=== PATIENT | male | born 1990 | race Caucasian/White ===

== ENCOUNTER 2016-08-18 20:19 | Inpatient (IN) | payer SELFPAY ==
[~2016-08-18] VITALS: Ht 182.9 cm; Wt 110.5 kg
[~2016-08-18 20:19] MED LIST: Z.0.NO CURRENT MEDS
[2016-08-18 20:20] VITALS: O2SAT 98
[2016-08-18] MEDS ORDERED: MORPHINE SULFATE 8 MG/ML INJ ONE (20:22)
[2016-08-18] MEDS ORDERED: ceFAZolin 2 GM PREMIX 50 ML IV STA (20:41)
[2016-08-18] MEDS ORDERED: DIPHTH/TETANUS/ACEL PERTUSSIS (BOOSTER) 0.5 ML VIAL/PFS IM ONE (20:41)
[2016-08-18] MEDS ORDERED: MORPHINE SULFATE 4 MG/ML INJ IV ONE (20:45)
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
[2016-08-18 20:51] LABS: I-STAT POTASSIUM 3.6 MMOL/L (3.5-4.9)
[2016-08-18 20:55] LABS: BASOPHIL % 0.4 % (0.0-2.0); EOSINOPHIL # 0.2 TH/MM3 (0-0.4); EOSINOPHIL % 2.2 % (0.0-4.0); HEMATOCRIT 49.8 % (39.0-51.0); HEMO FLAGS DIFF FINAL; LYMPH % 47.6 % (9.0-44.0); LYMPHOCYTE # 4.7 TH/MM3 (1.0-4.8); MEAN CORPUSCULAR HEMOGLOBIN 33.7 PG (27.0-34.0); MEAN CORPUSCULAR HGB CONC 35.5 % (32.0-36.0); MONO % 9.8 % (0.0-8.0); PLATELET COUNT 222 TH/MM3 (150-450); RED BLOOD COUNT 5.24 MIL/MM3 (4.50-5.90); WHITE BLOOD COUNT 9.9 TH/MM3 (4.0-11.0)
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
[2016-08-18 21:05] LABS: APTT (PATIENT) 27.4 SEC (24.3-30.1); PROTHROMBIN TIME - PATIENT 10.6 SEC (9.8-11.6)
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
[2016-08-18] MEDS ORDERED: IOHEXOL 350 MG/ML 10 ML VIAL (for RAD DIAG) IV ONE (21:12)
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
[2016-08-18] MEDS ORDERED: MORPHINE SULFATE 4 MG/ML INJ IV PUSH ONE (23:00)
[2016-08-18] MEDS ORDERED: VANCOMYCIN INJ 1,000 MG in SODIUM CHLOR 0.9% 250 ML INJ 250 ML IV ONE (23:30)
[2016-08-19] VITALS (7 sets, daily range): BP systolic 110–148; BP diastolic 59–83; PULSE 57–100; RESP 12–17; TEMP 96.1–98; O2SAT 95–99
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
[2016-08-19] MEDS ORDERED: MORPHINE SULFATE 4 MG/ML INJ IV PUSH ONE (04:15)
--- NOTE | 2016-08-19 07:07 | PD.ORT.PN ---
Subjective Subjective Remarks s/p right open ankle fx (Vladimir Washburn) Objective Vitals Vital Signs Date Time Temp Pulse Resp B/P Pulse Ox O2 Delivery O2 Flow Rate FiO2 08/19/16 06:42 100 13 148/83 95 Room Air 08/19/16 05:37 97 17 148/76 95 Room Air 08/19/16 04:07 71 17 110/59 96 Room Air 08/18/16 20:20 98 21 (Vladimir Washburn) Result Diagram: 08/18/162024 Other Results Laboratory Tests Test 08/18/16 20:25 Prothrombin Time 10.6 SEC (9.8-11.6) Prothromb Time International 1.0 RATIO Ratio Imaging Last 24 hours Impressions Thoracic Spine CT 08/18/162019 Signed Impressions: Service Date/Time: August 20:40 - CONCLUSION: Scoliosis and mild degenerative changes. No fracture or other acute abnormality seen of the thoracic spine. Elias Platt MD Maxillofacial CT 08/18/162019 Signed Impressions: Service Date/Time: August 20:36 - CONCLUSION: Motion degraded study. Possible fractured nose. Other facial bones are quite convincing on intact. Elias Platt MD Lumbar Spine CT 08/18/162019 Signed Impressions: Service Date/Time: August 20:40 - CONCLUSION: Normal, intact lumbar spine. Elias Platt MD Head CT 08/18/162019 Signed Impressions: Service Date/Time: August 20:32 - CONCLUSION: No acute intracranial abnormality. Elias Platt MD Chest X-Ray 08/18/162019 Signed Impressions: Service Date/Time: August 20:14 - CONCLUSION: Limited study without evidence of an acute abnormality. Elias Platt MD Chest CT 08/18/162019 Signed Impressions: Service Date/Time: August 20:42 - CONCLUSION: No acute abnormality seen in the chest. Early emphysema. Elias Platt MD Cervical Spine CT 08/18/162019 Signed Impressions: Service Date/Time: August 20:34 - CONCLUSION: Intact cervical spine. Elias Platt MD Abdomen/Pelvis CT 08/18/162019 Signed Impressions: Service Date/Time: August 20:40 - CONCLUSION: No visceral organ injury or other acute abnormality. Borderline cardiomegaly. Elias Platt MD Objective Remarks RLE: +short leg splint. intact. (Vladimir Washburn) Assessment & Plan Assessment and Plan 1) Right Open Ankle fx -consents -surgery today (Vladimir Washburn) Assessment and Plan Postoperative day #0 status post irrigation and debridement with open reduction internal fixation open right ankle fracture Nonweightbearing IV antibiotics Wound VAC dressing We'll change dressing on Monday. Possible discharge home on Monday if wound healing (Patrick Day MD) Vladimir Washburn Aug 19, 2016 07:07 Patrick Day MD Aug 19, 2016 11:27
[2016-08-19] MEDS ORDERED: SODIUM CHLORIDE 0.9% FLUSH 5 ML FLUSH IVF PRN ×2 (07:30→11:30)
[2016-08-19] MEDS ORDERED: MAGNESIUM HYDROXIDE SUSP 30 ML CUP PO PRN (07:30)
[2016-08-19] MEDS: LACTATED RINGER'S 1000 ML INJ 1,000 ML IV SCH ×4 (07:41→21:02)
[2016-08-19] MEDS ORDERED: ACETAMINOPHEN 325 MG TAB PO PRN (08:00)
[2016-08-19] MEDS ORDERED: ONDANSETRON HCL 4 MG/2 ML VIAL IV PRN (08:00)
[2016-08-19] MEDS: PANTOPRAZOLE SODIUM 40 MG VIAL IVP SCH (08:00)
[2016-08-19] MEDS ORDERED: ENALAPRILAT 1.25 MG/ML VIAL IV PRN (08:00)
[2016-08-19] MEDS ORDERED: GENTAMICIN SULFATE 80 MG/2 ML VIAL ONE ×3 (08:13→10:18)
[2016-08-19] MEDS ORDERED: ceFAZolin 2 GM PREMIX 50 ML ONE (08:13)
[2016-08-19] MEDS: DOCUSATE SODIUM 100 MG CAP PO SCH ×2 (08:29→20:56)
[2016-08-19] MEDS: BACITRACIN TOP OINT 15 GM TUBE TOP SCH ×3 (08:29→21:00)
[2016-08-19] MEDS ORDERED: FAMOTIDINE 20 MG/2 ML VIAL ONE (09:55)
[2016-08-19] MEDS ORDERED: MIDAZOLAM HCL 2 MG/2 ML VIAL ONE ×2 (09:55→09:56)
[2016-08-19] MEDS ORDERED: ACETAMINOPHEN 1000 MG/100 ML VIAL IV ONE (09:56)
[2016-08-19] MEDS ORDERED: fentaNYL CITRATE 250 MCG/5 ML AMP ONE ×2 (09:57)
[2016-08-19] MEDS ORDERED: DEXAMETHASONE SOD PHOS 4 MG/ML VIAL ONE (09:57)
[2016-08-19] MEDS ORDERED: WALKER/ADULT/FO1 MIS (11:06)
[2016-08-19] MEDS ORDERED: Post-op Orders (for Pharmacy) MISC XX ONE (11:30)
[2016-08-19] MEDS ORDERED: ONDANSETRON HCL 4 MG/2 ML VIAL IVP PRN (11:30)
[2016-08-19] MEDS ORDERED: diphenhydrAMINE HCL 25 MG CAP PO PRN (11:30)
--- NOTE | 2016-08-19 11:31 | PD.OP ---
cc: Patrick Ratliff MD Operative Report Date of Surgery: Aug 19, 2016 Preoperative Diagnosis: Open right ankle fracture Postoperative Diagnosis: Procedure: Irrigation and debridement of open fibula fracture, open reduction internal fixation right bimalleolar ankle fracture, stress exam of syndesmosis, open reduction internal fixation syndesmosis, application of wound VAC dressing Anesthesia: Gen. Surgeon: Patrick Ratliff Coding Machine Operator(s): SALTY Michael PA-C The surgical procedure was assisted by my physician executive personal assistant. My P.A. presence was necessary throughout this case for the manipulation and positioning of the surgical extremity. My P.A. was assisting me throughout the duration of this procedure. The skill set of a physician executive personal assistant was medically necessary to complete this procedure. During the surgical case the surgical processor was working at the back table and the physician executive personal assistant was directly assisting me. Operation and Findings: Patient was seen and evaluated preoperatively and found to have a displaced open right ankle fracture. Informed consent was obtained after a detailed discussion of risk and benefits of surgery. The operative site was marked. Patient was brought to the OR, placed on the OR table, and given IV sedation and general endotracheal anesthesia. IV antibiotics were given preoperatively. A timeout procedure was performed. The left leg was prepped with alcohol followed by Hibiclens and draped in the usual sterile fashion. Attention was turned towards the distal fibula. A four-inch incision was made over the distal fibula. The subcutaneous tissue was dissected with Bovie. The fracture site was visualized. At this point attention was turned to irrigation and debridement of open fracture. Multiple small bone fragments were excised. Curettes and rongeurs were used to debride soft tissue and bone. The fracture site was cleaned with curets. After thorough debridement the wound was thoroughly irrigated with 3 L of sterile saline. Next attention was turned towards fracture reduction. The fracture was now reduced with multiple tenaculums. There was significant comminution. K-wires were used to h old provisional fixation. A Synthes 10 hole one third tubular plate was selected. The plate was provisionally held to bone with K-wires. 3.5 cortical screws were used to compress the plate to bone. Multiple screws were placed above and below the fracture. Next attention was turned towards the medial malleolus. The medial malleolus supposed through a 3 cm incision. Saphenous vein was retracted. Fracture was visualized. Fracture was cleaned with curettes. Fracture was now reduced and keyed into anatomic alignment. K wires were used to hold provisional fixation. 2 guidepins for the 4.0 cannulated screws were placed in a retrograde fashion across the fracture. Fluoroscopy was used to confirm guidepin placement. Cannulated drill was placed over the guidepin. 2 appropriate length screws were now placed. Good compression was applied. Fluoroscopy confirmed well aligned fracture with well-placed hardware. Next, attention was turned to the syndesmosis. The syndesmosis was stressed. There was clear widening of the syndesmosis with external rotation of the ankle. The syndesmosis was now held in a reduced position with the ankle in neutral position. Two Synthes 4.0 cortical screws were now placed through the fibula plate into the tibia. Fluoroscopy confirmed appropriate screw placement with well-aligned syndesmosis. Incisions were thoroughly irrigated. The subcutaneous tissue was closed with 3-0 PDS and the skin was closed with 3-0 nylon. The skin around the open fracture site had some abrasions and traumatic injury. A wound VAC dressing was applied over the lateral incision. VAC dressing was sealed appropriately and set on intermittent 100 mmHg. Sterile dressings were applied. A well molded well-padded splint was applied. The patient was transferred to Recovery in stable condition. Needle and sponge counts were correct. Patrick Ratliff MD Aug 19, 2016 11:31
[2016-08-19] MEDS ORDERED: PROPOFOL 200 MG/20 ML AMP IV ONE (12:00)
[2016-08-19] MEDS ORDERED: ONDANSETRON HCL 4 MG/2 ML VIAL IV PUSH ONE (12:00)
[2016-08-19] MEDS: CALCIUM/VITAMIN D 250 MG/125 U TAB PO SCH ×2 (13:00→17:12)
[2016-08-19] MEDS ORDERED: *morphine SULFATE 8 MG/ML PERIprocedure ONLY ONE (13:14)
[2016-08-19] MEDS: KETOROLAC TROMETHAMINE 30 MG/ML (IVP) VIAL IVP SCH ×2 (14:17→20:56)
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
--- NOTE | 2016-08-19 15:48 | RADRPT ---
EXAM DATE/TIME: 08/19/2016 10:37 [facility] COMPARISON: No previous studies available for comparison. INDICATIONS : Orif right ankle. MEDICAL HISTORY : Distal tibia and fibula fractures SURGICAL HISTORY : None. ENCOUNTER: Initial ACUITY: 2 days PAIN SCORE: Non-responsive. LOCATION: Right Ankle. FINDINGS: Three view exam was performed of the right ankle. Postsurgical changes are noted following open reduc tion and internal fixation of a bimalleolar fracture. The distal fibula has been stabilized with an e xtra medullary plate. Medial malleolar fixation with 2 screws is noted. Ankle mortise is well-maintai derrek. CONCLUSION: Satisfactory appearance and alignment of ankle joint following ORIF. Mono Miles MD on August 19, 2016 at 15:46 Board Certified Radiologist. This report was verified electronically.
--- NOTE | 2016-08-19 16:20 | OTSOAPIP ---
TIME SESSION COMPLETED: AM TREATMENT TIME: 0 MINS. CHART REVIEWED. ATTEMPTED TO SEE FOR OT EVALUATION, HOWEVER PT HAVING SURGERY ON RIGHT LOWER EXTREMITY. WILL FOLLOW NEXT DAY. Therapist: LAZARO GALICIA OT/L Signature on file
[2016-08-19] MEDS: ACETAMINOPHEN/HYDROcodone 325 MG/10 MG TAB PO PRN ×2 (17:12→21:00)
[2016-08-19] MEDS: ceFAZolin 2 GM PREMIX 50 ML IV SCH (17:36)
[2016-08-19] MEDS: GENTAMICIN 80 MG PREMIX 100 ML IV SCH (18:39)
[2016-08-19] MEDS: SODIUM CHLORIDE 0.9% FLUSH 5 ML FLUSH IVF SCH (21:00)
[2016-08-20 00:30] VITALS: BP 134/73; PULSE 58; RESP 16; TEMP 96.3; O2SAT 96
[2016-08-20] MEDS: ceFAZolin 2 GM PREMIX 50 ML IV SCH ×3 (01:18→17:35)
[2016-08-20] MEDS: ACETAMINOPHEN/HYDROcodone 325 MG/10 MG TAB PO PRN ×6 (01:18→21:48)
[2016-08-20] MEDS: GENTAMICIN 80 MG PREMIX 100 ML IV SCH ×3 (03:14→19:51)
[2016-08-20 04:15] VITALS: BP 122/69; PULSE 66; RESP 16; TEMP 96.5; O2SAT 97
[2016-08-20] MEDS: LACTATED RINGER'S 1000 ML INJ 1,000 ML IV SCH ×4 (05:22→17:36)
[2016-08-20] MEDS: KETOROLAC TROMETHAMINE 30 MG/ML (IVP) VIAL IVP SCH (05:22)
[2016-08-20 05:37] LABS: HEMATOCRIT 39.1 % (39.0-51.0); MEAN CELL VOLUME 95.3 FL (80.0-100.0); MEAN CORPUSCULAR HEMOGLOBIN 34.2 PG (27.0-34.0); MEAN CORPUSCULAR HGB CONC 35.9 % (32.0-36.0); PLATELET COUNT 150 TH/MM3 (150-450); RED BLOOD COUNT 4.11 MIL/MM3 (4.50-5.90); RED CELL DISTRIBUTION WIDTH 13.8 % (11.6-17.2); WHITE BLOOD COUNT 13.8 TH/MM3 (4.0-11.0)
[2016-08-20 05:42] LABS: HEMO FLAGS AUTO DIFF
[2016-08-20 05:54] LABS: ALT (GPT) 43 U/L (12-78); ANION GAP 7 MEQ/L (5-15); AST (GOT) 29 U/L (15-37); BICARBONATE 29.3 MEQ/L (21.0-32.0); BLOOD UREA NITROGEN 13 MG/DL (7-18); CHLORIDE 101 MEQ/L (98-107); GLOMERULAR FILTRATION RATE 68 ML/MIN (>89); POTASSIUM 3.8 MEQ/L (3.5-5.1); SODIUM (NA) 137 MEQ/L (136-145)
[2016-08-20 05:57] LABS: ALKALINE PHOSPHATASE 59 U/L (45-117); TOTAL BILIRUBIN ADULT 0.4 MG/DL (0.2-1.0)
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
[2016-08-20 08:00] VITALS: BP 136/72; PULSE 58; RESP 18; TEMP 97.3; O2SAT 96
[2016-08-20] MEDS: BACITRACIN TOP OINT 15 GM TUBE TOP SCH ×2 (09:00→19:51)
[2016-08-20] MEDS: CALCIUM/VITAMIN D 250 MG/125 U TAB PO SCH ×3 (09:37→17:35)
[2016-08-20] MEDS: PANTOPRAZOLE SODIUM 40 MG VIAL IVP SCH (09:37)
[2016-08-20] MEDS: DOCUSATE SODIUM 100 MG CAP PO SCH ×2 (09:37→19:51)
[2016-08-20] MEDS: SODIUM CHLORIDE 0.9% FLUSH 5 ML FLUSH IVF SCH ×2 (09:37→19:51)
[2016-08-20 10:02] LABS: BANDS 3 % (0-6); NEUTROPHIL # MANUAL DIFF 11.2 TH/MM3 (1.8-7.7); POLYS (SEG NEUTROPHILS) 78 % (16-70); WBC DIFF SAMPLE 100
[2016-08-20 10:03] LABS: PLATELET ESTIMATE SMEAR NORMAL (NORMAL); PLATELET MORPHOLOGY NORMAL (NORMAL); SCAN/DIFF FINAL DIFF MANUAL
[2016-08-20 12:00] VITALS: BP 126/68; PULSE 69; RESP 18; TEMP 97; O2SAT 96
[2016-08-20 16:00] VITALS: BP 127/61; PULSE 57; RESP 18; TEMP 97.2; O2SAT 98
[2016-08-20 19:00] VITALS: BP 137/79; PULSE 64; RESP 18; TEMP 98.2; O2SAT 98
[2016-08-21] VITALS (7 sets, daily range): BP systolic 122–153; BP diastolic 63–84; PULSE 58–79; RESP 15–18; TEMP 96.1–98.7; O2SAT 94–99
[2016-08-21] MEDS: MORPHINE SULFATE 4 MG/ML INJ IV PUSH PRN ×4 (00:19→21:43)
[2016-08-21] MEDS: GENTAMICIN 80 MG PREMIX 100 ML IV SCH ×3 (02:03→19:39)
[2016-08-21] MEDS: ceFAZolin 2 GM PREMIX 50 ML IV SCH ×3 (02:03→17:38)
[2016-08-21] MEDS: ACETAMINOPHEN/HYDROcodone 325 MG/10 MG TAB PO PRN ×5 (02:04→20:18)
[2016-08-21] MEDS: LACTATED RINGER'S 1000 ML INJ 1,000 ML IV SCH ×6 (03:23→19:40)
[2016-08-21] MEDS: PANTOPRAZOLE SODIUM 40 MG VIAL IVP SCH (07:24)
[2016-08-21] MEDS: CALCIUM/VITAMIN D 250 MG/125 U TAB PO SCH ×3 (07:24→17:39)
[2016-08-21] MEDS: SODIUM CHLORIDE 0.9% FLUSH 5 ML FLUSH IVF SCH ×2 (07:24→19:39)
[2016-08-21] MEDS: DOCUSATE SODIUM 100 MG CAP PO SCH ×2 (07:24→19:39)
[2016-08-21] MEDS: BACITRACIN TOP OINT 15 GM TUBE TOP SCH ×2 (08:26→19:39)
--- NOTE | 2016-08-21 09:02 | PD.ORT.PN ---
Subjective Subjective Remarks Doing 'a little better' but still has quite a bit of pain. Still burning and throbbing. No other complaints. No fever, CP or SOB. Objective Vitals Vital Signs Date Time Temp Pulse Resp B/P Pulse Ox O2 Delivery O2 Flow Rate FiO2 08/21/16 08:58 95 21 08/21/16 00:00 98.7 60 18 127/84 97 08/20/16 19:00 98.2 64 18 137/79 98 08/20/16 16:00 97.2 57 18 127/61 98 08/20/16 12:00 97.0 69 18 126/68 96 I/O 08/20/16 08/20/16 08/20/16 08/21/16 08/21/16 08/21/16 07:00 15:00 23:00 07:00 15:00 23:00 Intake Total 1530 ml 720 ml 2208 ml 1084 ml Output Total 1600 ml 1300 ml 1000 ml Balance -70 ml 720 ml 908 ml 84 ml Intake Oral 480 ml 720 ml 720 ml 480 ml IV Total 1050 ml 1488 ml 604 ml Output Urine Total 1600 ml 1300 ml 1000 ml Drainage Total 0 ml 0 ml 0 ml # Voids 4 # Bowel Movements 0 0 0 0 Result Diagram: 08/20/16 0458 08/20/16 0458 Imaging Last 24 hours Impressions Thoracic Spine CT 08/18/162019 Signed Impressions: Service Date/Time: August 20:40 - CONCLUSION: Scoliosis and mild degenerative changes. No fracture or other acute abnormality seen of the thoracic spine. Elias Platt MD Maxillofacial CT 08/18/162019 Signed Impressions: Service Date/Time: August 20:36 - CONCLUSION: Motion degraded study. Possible fractured nose. Other facial bones are quite convincing on intact. Elias Platt MD Lumbar Spine CT 08/18/162019 Signed Impressions: Service Date/Time: August 20:40 - CONCLUSION: Normal, intact lumbar spine. Elias Platt MD Head CT 08/18/162019 Signed Impressions: Service Date/Time: August 20:32 - CONCLUSION: No acute intracranial abnormality. Elias Platt MD Chest X-Ray 08/18/162019 Signed Impressions: Service Date/Time: August 20:14 - CONCLUSION: Limited study without evidence of an acute abnormality. Elias Platt MD Chest CT 08/18/162019 Signed Impressions: Service Date/Time: August 20:42 - CONCLUSION: No acute abnormality seen in the chest. Early emphysema. Elias Platt MD Cervical Spine CT 08/18/162019 Signed Impressions: Service Date/Time: August 20:34 - CONCLUSION: Intact cervical spine. Elias Platt MD Abdomen/Pelvis CT 08/18/162019 Signed Impressions: Service Date/Time: August 20:40 - CONCLUSION: No visceral organ injury or other acute abnormality. Borderline cardiomegaly. Elias Platt MD Objective Remarks Laying in bed, Splint RLE VSS RLE Dressing/splint in place, Wound VAC in place, mild swelling toes +motor toes, +sens, +nvi Pt was seen and evaluated by Dr. Dottie Adan Assessment & Plan Ortho Post Op Day #: 2 Problem List: Assessment and Plan pod#1 s/p ORIF R Bimall open ankle fracture, wound VAC Ortho stable po pain meds Nonweightbearing RLE. Continue splint and VAC, first dressing change monday. IV antibiotics Possible discharge home on Monday if wound healing. Will eval at that time. Jovana Dominguez Aug 21, 2016 09:02
[2016-08-22] MEDS: ceFAZolin 2 GM PREMIX 50 ML IV SCH ×2 (00:36→09:52)
[2016-08-22] MEDS: ACETAMINOPHEN/HYDROcodone 325 MG/10 MG TAB PO PRN ×3 (00:37→09:51)
[2016-08-22] MEDS: GENTAMICIN 80 MG PREMIX 100 ML IV SCH ×2 (01:42→11:00)
[2016-08-22] MEDS: MORPHINE SULFATE 4 MG/ML INJ IV PUSH PRN (01:43)
[2016-08-22] MEDS: LACTATED RINGER'S 1000 ML INJ 1,000 ML IV SCH ×2 (01:51→09:23)
--- NOTE | 2016-08-22 07:22 | PD.ORT.PN ---
Subjective Subjective Remarks Resting comfortably with pain controlled. Objective Vitals Vital Signs Date Time Temp Pulse Resp B/P Pulse Ox O2 Delivery O2 Flow Rate FiO2 08/21/16 23:55 98.0 73 15 122/63 94 08/21/16 20:40 98.6 67 15 153/82 98 08/21/16 16:00 98.2 61 18 144/82 98 08/21/16 12:00 97.5 79 18 136/75 99 08/21/16 08:58 95 21 08/21/16 08:00 96.1 58 18 137/72 98 I/O 08/21/16 08/21/16 08/21/16 08/22/16 08/22/16 08/22/16 07:00 15:00 23:00 07:00 15:00 23:00 Intake Total 1084 ml 960 ml 1080 ml Output Total 1000 ml 1800 ml 825 ml Balance 84 ml -840 ml 255 ml Intake Oral 480 ml 960 ml 1080 ml IV Total 604 ml Output Urine Total 1000 ml 1800 ml 825 ml Drainage Total 0 ml 0 ml # Voids 0 # Bowel Movements 0 0 0 Result Diagram: 08/20/16 0458 08/20/16 0458 Imaging Last 24 hours Impressions Thoracic Spine CT 08/18/162019 Signed Impressions: Service Date/Time: August 20:40 - CONCLUSION: Scoliosis and mild degenerative changes. No fracture or other acute abnormality seen of the thoracic spine. Elias Platt MD Maxillofacial CT 08/18/162019 Signed Impressions: Service Date/Time: August 20:36 - CONCLUSION: Motion degraded study. Possible fractured nose. Other facial bones are quite convincing on intact. Elias Platt MD Lumbar Spine CT 08/18/162019 Signed Impressions: Service Date/Time: August 20:40 - CONCLUSION: Normal, intact lumbar spine. Elias Platt MD Head CT 08/18/162019 Signed Impressions: Service Date/Time: August 20:32 - CONCLUSION: No acute intracranial abnormality. Elias Platt MD Chest X-Ray 08/18/162019 Signed Impressions: Service Date/Time: August 20:14 - CONCLUSION: Limited study without evidence of an acute abnormality. Elias Platt MD Chest CT 08/18/162019 Signed Impressions: Service Date/Time: August 20:42 - CONCLUSION: No acute abnormality seen in the chest. Early emphysema. Elias Platt MD Cervical Spine CT 08/18/162019 Signed Impressions: Service Date/Time: August 20:34 - CONCLUSION: Intact cervical spine. Elias Platt MD Abdomen/Pelvis CT 08/18/162019 Signed Impressions: Service Date/Time: August 20:40 - CONCLUSION: No visceral organ injury or other acute abnormality. Borderline cardiomegaly. Elias Platt MD Objective Remarks Laying in bed, Right lower extremity: Splint taken down wound VAC removed revealing bilateral incisions of ankle healing appropriately. No necrosis of skin breakdown. He has intact sensation distally in all his toes no pain with knee or hip range of motion. Splint is placed back up on him Assessment & Plan Assessment and Plan pod#3 s/p ORIF R Bimall open ankle fracture, wound VAC [employer] for new Ratliff splint Nonweightbearing right lower extremity, elevate and maintain splint DC wound VAC Discharge to home today Follow-up with Dr. Ratliff or TIA in 2 weeks ISACC CAMEJO PA-C Aug 22, 2016 07:22
[2016-08-22 08:00] VITALS: BP 141/78; PULSE 58; RESP 16; TEMP 97.8; O2SAT 97
[2016-08-22] MEDS: BACITRACIN TOP OINT 15 GM TUBE TOP SCH (09:00)
[2016-08-22] MEDS: DOCUSATE SODIUM 100 MG CAP PO SCH (09:00)
[2016-08-22] MEDS: SODIUM CHLORIDE 0.9% FLUSH 5 ML FLUSH IVF SCH (09:50)
[2016-08-22] MEDS: CALCIUM/VITAMIN D 250 MG/125 U TAB PO SCH (09:50)
[2016-08-22] MEDS: PANTOPRAZOLE SODIUM 40 MG VIAL IVP SCH (09:51)
[2016-08-22] MEDS ORDERED: HYDR-3366 PO (11:12)
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
== END 2016-08-22 11:29 | disposition home or self-care (01) | DRG 494 ==
LOC: NEPI 20:19 → NEDA 20:51 → EDBD 20:51 → MERGE 20:51 → NEDA 08-19 00:04 → NEDH 08-19 02:56 → N06B 08-19 16:17
PROVIDERS: ADMIT Orthopaedic Surgery Orthopaedic Trauma; ATTEND Orthopaedic Surgery Orthopaedic Trauma
PROC: 0QSG04Z Reposition Right Tibia with Internal Fixation Device, Open Approach (ICD-10-PCS; 2016-08-19)
PROC: 0SSF04Z Reposition Right Ankle Joint with Internal Fixation Device, Open Approach (ICD-10-PCS; 2016-08-19)
PROC: 0QSJ04Z Reposition Right Fibula with Internal Fixation Device, Open Approach (ICD-10-PCS; principal; 2016-08-19 10:02)
DX: S82.841B Displaced bimalleolar fracture of right lower leg, initial encounter for open fracture type I or II (principal); F17.210 Nicotine dependence, cigarettes, uncomplicated; S93.431A Sprain of tibiofibular ligament of right ankle, initial encounter; V03.10XA Pedestrian on foot injured in collision with car, pick-up truck or van in traffic accident, initial encounter; Y93.01 Activity, walking, marching and hiking; Y92.410 Unspecified street and highway as the place of occurrence of the external cause
CPT/HCPCS: 70450; 70486; 71010; 71260; 72125; 72128; 72131; 73090; 73590; 73610; 74177; 76000; 80053; 80307; 82435; 82565; 82947; 84132; 84295; 84520; 85007; 85025; 85027; 85610; 85730; 86850; 86900; 86901; 90471; 90715; 94150; 96374; 96375; 99291; C1713; C1769; C9113; G0390; J0131; J0690; J1100; J1580; J1885; J2250; J2270; J2405; J3010; J3370; J7050; J7120; Q9967

== ENCOUNTER 2016-10-20 04:44 | Emergency (ER) | payer SELFPAY ==
[~2016-10-20 04:44] MED LIST changes: +HYDR-3366 PO; +WALKER/ADULT/FO1 MIS
[2016-10-20 04:46] VITALS: BP 143/80; PULSE 115; RESP 14; TEMP 98.1; O2SAT 96
[2016-10-20] MEDS ORDERED: TETANUS/DIPHTHERIA TOXOID ADULT 0.5 ML VIAL IM ONE (05:00)
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
[2016-10-20 09:24] VITALS: BP 121/73; PULSE 75; RESP 16; O2SAT 100
--- NOTE | 2016-10-20 09:42 | RADRPT ---
EXAM DATE/TIME: 10/20/2016 09:28 [place] COMPARISON: No previous studies available for comparison. INDICATIONS : Fell yesterday, pain entire ankle, prior ORIF 4 months ago. MEDICAL HISTORY : Fracture ankle SURGICAL HISTORY : ORIF ankle ENCOUNTER: Initial ACUITY: 2 days PAIN SCORE: 9/10 LOCATION: Right ankle. FINDINGS: Three view exam was performed of the right ankle. There is plate and screw fixation of the distal fib jessica and lag screw fixation of the medial malleolus. Normal alignment at the ankle joint. CONCLUSION: Postoperative fixation of the right ankle. Normal alignment. Rex Soto MD on October 20, 2016 at 9:35 Board Certified Radiologist. This report was verified electronically.
[2016-10-20 10:14] VITALS: BP 134/76
[2016-10-20 10:25] VITALS: BP 199/98; PULSE 75; RESP 16
== END 2016-10-20 10:16 | disposition home or self-care (01) ==
LOC: NEPD 04:44
DX: T14.8 Other injury of unspecified body region (principal); F17.210 Nicotine dependence, cigarettes, uncomplicated; Y35.93XA Legal intervention, means unspecified, suspect injured, initial encounter
CPT/HCPCS: 73610; 90471; 90714

== ENCOUNTER 2017-03-09 11:17 | Emergency (ER) | payer SELFPAY ==
[~2017-03-09] VITALS: Ht 182.9 cm; Wt 81.5 kg
[2017-03-09 11:19] VITALS: BP 151/80; PULSE 110; RESP 20; TEMP 98.6; O2SAT 99
[2017-03-09] MEDS ORDERED: PRED20 PO (12:15)
[2017-03-09] MEDS ORDERED: CEPH-460 PO (12:16)
--- NOTE | 2017-03-09 12:16 | PD ---
HPI Chief Complaint: Skin Problem Time Seen by Provider: 11:58 Travel History International Travel<30 days: No Contact w/Intl Traveler<30days: No Traveled to known affect area: No History of Present Illness HPI 26-year-old male presents emergency department for evaluation of a pruritic rash 1 week. Patient reports the rash started in his upper chest and has now extended throughout his trunk and upper and lower extremities. The rash is not on his face hands or feet. He denies fever or chills. Patient reports mild sore throat. Patient has not tried any [id number] medications or any home remedies to alleviate the rash. He denies any new medications or sick exposures. He denies headache, visual changes, neck pain, chest pain, cough, abdominal pain. PFSH Past Medical History Medical History: Denies Significant Hx Asthma: No Autoimmune Disease: No Heart Rhythm Problems: No Cancer: No Cardiovascular Problems: No High Cholesterol: No Chemotherapy: No Chest Pain: No Congestive Heart Failure: No COPD: No Cerebrovascular Accident: No Diabetes: No Diminished Hearing: No Endocrine: No GERD: No Genitourinary: No Headaches: Yes Hiatal Hernia: No Immune Disorder: No Kidney Stones: No Musculoskeletal: No Respiratory: No Migraines: Yes Radiation Therapy: No Renal Failure: No Seizures: No Sickle Cell Disease: No Sleep Apnea: No Thyroid Disease: No Ulcer: No Tetanus Vaccination: < 5 Years Past Surgical History Abdominal Surgery: No AICD: No Arteriovenous Shunt: No Cardiac Surgery: No Ear Surgery: No Endocrine Surgery: No Genitourinary Surgery: No Gynecologic Surgery: Yes Joint Replacement: No Neurologic Surgery: Yes (TUMOR REMOVED FROM POSTERIOR HEAD) Oral Surgery: No Pacemaker: No Thoracic Surgery: No Other Surgery: Yes (CRANI 1995; HAND SX 2007) Social History Alcohol Use: Yes Tobacco Use: Yes (06/13 PPD) Substance Use: No Allergies-Medications (Allergen,Severity, Reaction): Coded Allergies: Sulfa (Sulfonamide Antibiotics) (Unverified Allergy, Severe, 03/09/17) erythromycin base (Unverified Allergy, Mild, 03/09/17) sulfisoxazole (Unverified Allergy, Mild, 03/09/17) Reported Meds & Prescriptions Reported Meds & Active Scripts Active Review of Systems Except as stated in HPI: all other systems reviewed are Neg General / Constitutional: No: Fever Eyes: No: Visual changes HENT: No: Headaches Cardiovascular: No: Chest Pain or Discomfort Respiratory: No: Shortness of Breath Gastrointestinal: No: Abdominal Pain Genitourinary: No: Dysuria Skin: Positive Rash Neurologic: No: Weakness Physical Exam Narrative GENERAL: Well-nourished, well-developed patient. SKIN: Focused skin assessment warm/dry. Widespread maculopapular rash over patient's trunk, arms, legs. The rash does not extend into the face hands or feet. Multiple open wounds on the lower extremities caused by scratching have small amount of purulent drainage and surrounding erythema. These areas are non -indurated, no fluctuance, no surrounding cellulitis. HEAD: Normocephalic. EYES: No scleral icterus. No injection or drainage. NECK: Supple, trachea midline. No JVD or lymphadenopathy. No meningismus CARDIOVASCULAR: Regular rate and rhythm without murmurs, gallops, or rubs. RESPIRATORY: Breath sounds equal bilaterally. No accessory muscle use. GASTROINTESTINAL: Abdomen soft, non-tender, nondistended. MUSCULOSKELETAL: No cyanosis, or edema. BACK: Nontender without obvious deformity. No CVA tenderness. Data Data Last Documented VS Vital Signs Date Time Temp Pulse Resp B/P (MAP) Pulse Ox O2 Delivery O2 Flow Rate FiO2 03/09/17 11:19 98.6 110 20 151/80 (103) 99 Room Air MDM Medical Decision Making Medical Screen Exam Complete: Yes Emergency Medical Condition: Yes Differential Diagnosis Viral exanthema, wound infection, unspecified rash Narrative Course 26-year-old male with widespread rash to the trunk, arms, legs times one week. Patient reports the rash is pruritic and nonpainful. The rash does not extend to the face, hands, feet. He denies fever or chills. He denies any new medications or sick contacts. He is denying any other physical symptoms. On exam patient has a maculopapular rash which is widespread. He has several wounds on the lower extremities which appear to be areas of excoriation caused by fingernail trauma from itching. The wounds appear mildly infected without signs of surrounding cellulitis or abscess. Patient will be treated for nonspecific rash and wound infection with close follow-up. Return precautions discussed. Patient verbalizes understanding and agrees to plan Diagnosis Primary Impression: Rash and nonspecific skin eruption Additional Impression: Wound infection Referrals: [facility] Additional Instructions: Take the medications as prescribed. Take [id number] Benadryl 25-50 mg every 6 hours as needed for itching Follow-up with the [facility]. Return to emergency department if he developed fever, chills, worsening symptoms Scripts Cephalexin (Keflex) 500 Mg Cap 500 MG PO Q6H for Infection for 7 Days, #28 CAP 0 Refills Prov: Miryam Motta 03/09/17 Prednisone (Prednisone) 20 Mg Tab 40 MG PO DAILY, #10 TAB 0 Refills Take 40 mg (2 tablets) daily for 5 days Prov: Miryam Motta 03/09/17 Disposition: 01 DISCHARGE HOME Condition: Stable Miryam Motta Mar 09, 2017 12:16
== END 2017-03-09 12:32 | disposition home or self-care (01) ==
LOC: NEPK 11:17
DX: R21 Rash and other nonspecific skin eruption (principal); L08.9 Local infection of the skin and subcutaneous tissue, unspecified; J02.9 Acute pharyngitis, unspecified; Z72.0 Tobacco use
CPT/HCPCS: 99284